=== PATIENT | male | born 1935 | race Caucasian/White ===

== ENCOUNTER 2016-10-19 12:50 | Emergency (ER) | payer OTHER ==
[~2016-10-19] VITALS: Ht 160 cm; Wt 67.0 kg
[~2016-10-19 12:50] MED LIST: APIX5TAB PO; ASPI81TA3 PO; ATOR10TA65 PO; BENA20TA48 PO; METO-448 PO; RANO500T2 PO; TAMS-14 PO; TAMS0.4C2 PO
[2016-10-19 12:57] VITALS: Ht 160 cm; Wt 67.0 kg
[2016-10-19 13:38] LABS: ADD SCAN DIFF NO
[2016-10-19 13:43] LABS: BASOPHIL # 0.1 10^3/ul (0.0-0.1); BASOPHILS % 0.6 % (0.0-2.0); EOSINOPHILS # 0.2 10^3/ul (0.0-0.5); EOSINOPHILS % 2.4 % (0.0-7.0); HEMATOCRIT 50.2 % (42.0-52.0); HEMOGLOBIN 16.6 g/dl (14.0-18.0); LYMPHOCYTES % 23.9 % (15.0-51.0); MEAN CORPUSCULAR HEMOGLOBIN 31.6 pg (29.0-33.0); MEAN CORPUSCULAR HGB CONC 33.1 g/dl (32.0-37.0); MEAN CORPUSCULAR VOLUME 95.4 fl (82.0-101.0); MEAN PLATELET VOLUME 11.8 fl (7.4-10.4); MONOCYTE # 0.8 10^3/ul (0.3-0.9); MONOCYTES % 10.1 % (0.0-11.0); NEUTROPHIL # 5.1 10^3/ul (1.6-7.5); NEUTROPHILS % 62.8 % (39.0-77.0); PLATELET COUNT 154 10^3/UL (140-415); RED BLOOD COUNT 5.26 10^6/ul (4.70-6.10); RED CELL DISTRIBUTION WIDTH 13.6 % (11.5-14.5); WHITE BLOOD COUNT 8.2 10^3/ul (4.8-10.8)
[2016-10-19 13:48] LABS: ADD UMIC NO; URINE BILIRUBIN (Dip) NEGATIVE (NEGATIVE); URINE BLOOD (Dip) NEGATIVE (NEGATIVE); URINE COLOR LT. YELLOW (YELLOW); URINE GLUCOSE (Dip) NEGATIVE (NEGATIVE); URINE KETONES (Dip) NEGATIVE (NEGATIVE); URINE LEUKOCYTE ESTERASE (Dip) NEGATIVE (NEGATIVE); URINE NITRITE (Dip) NEGATIVE (NEGATIVE); URINE TOTAL PROTEIN (Dip) NEGATIVE (NEGATIVE); URINE UROBILINOGEN (Dip) 0.2 E.U./dL (0.1-1.0)
--- NOTE | 2016-10-19 13:48 | RADRPT ---
PROCEDURE: CT Brain without contrast. CLINICAL INDICATION: Possible Stroke TECHNIQUE: A multiplanar CT of the brain was performed on a CT scanner utilizing axial imaging fro m the skull base through the vertex without IV contrast. The CTDIvol is 39.54 mGy and the DLP is 63 4.23 mGycm. One or more of the following dose reduction techniques were utilized: Automated exposu re control, adjustment of the mA and/or kV according to patient size, use of iterative reconstructio n technique. COMPARISON: None FINDINGS: No evidence of intracranial hemorrhage or abnormal extra-axial fluid collection. Patchy periventricular low attenuation compatible with sequelae of chronic microvascular ischemic in jury. The ventricles and subarachnoid spaces are moderate of the large compatible with central pare nchymal volume loss. Physiologic basal ganglia calcifications bilaterally. The basal cisterns, posterior fossa contents, brainstem, craniocervical junction, orbits, pituitary axis, paranasal sinuses, mastoid air cells, and calvarium are unremarkable. IMPRESSION: 1. No intracranial hemorrhage or acute intracranial abnormality. 2. 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 RPTAT:AAJJ Physician Mansi Date Time Electronically viewed and signed by Physician Mansi on 10/19/2016 13:47 BROWN/
[2016-10-19 13:55] LABS: INR 1.16; PROTIME 14.9 Sec (12.2-14.2); PT RATIO 1.2
[2016-10-19 13:56] LABS: PARTIAL THROMBOPLASTIN TIME 29.8 Sec (25.0-35.0)
[2016-10-19 13:58] LABS: CHLORIDE 99 mmol/L (97-110)
[2016-10-19 13:59] LABS: POTASSIUM 4.2 mmol/L (3.5-5.1); SODIUM 140 mmol/L (135-144)
--- NOTE | 2016-10-19 13:59 | RADRPT ---
PROCEDURE: XR Chest. CLINICAL INDICATION: Possible stroke in an 80-year-old. TECHNIQUE: Single frontal view of the chest was obtained COMPARISON: Chest x-ray 04/24/2016 12:21 p.m. FINDINGS: The soft tissues are normal. There are degenerative osteophytes in the thoracic spine. The heart i s enlarged. The cardiomediastinal silhouette, pulmonary vasculature and hilar structures are normal . There are vascular calcifications in the aortic arch and ectasia of the descending thoracic aorta. Lungs are clear. The costophrenic angles are normal. IMPRESSION: 1. Atherosclerosis with ectasia of the thoracic aorta. 2. Cardiomegaly. 3. Spondylosis of the thoracic spine. 4. Stable chest x-ray with no evidence of active cardiopulmonary disease. RPTAT:AAJJ Physician Sangeetha Date Time Electronically viewed and signed by Liam Barber Physician on 10/19/2016 13:59 DERIK/
[2016-10-19 14:01] LABS: ANION GAP 15 (8-16); CARBON DIOXIDE 30 mmol/L (21-31); CREATININE 1.22 mg/dl (0.61-1.24)
[2016-10-19 14:02] LABS: BLOOD UREA NITROGEN 22 mg/dl (7-20); GLUCOSE 99 mg/dl (70-220)
[2016-10-19 14:14] LABS: BARBITURATES Negative (NEGATIVE); BENZODIAZEPINES Negative (NEGATIVE); CANNABINOIDS Negative (NEGATIVE); COCAINE Negative (NEGATIVE); OPIATES Negative (NEGATIVE)
[2016-10-19 14:17] LABS: TROPONIN-I < 0.012 ng/ml (0.00-0.12)
[2016-10-19 14:44] VITALS: BP 137/59; PULSE 88; RESP 16
--- NOTE | 2016-10-19 14:48 | ERD ---
ER Documentation Chief Complaint Date/Time DATE: 10/19/16 TIME: 14:48 Chief Complaint weakness and dizziness started today HPI Patient is a 80-year-old male with no medical problems who presents with dizziness. The patient was brought in by ambulance. He felt dizzy and lightheaded. He said that it just started today while he was at his doctor's office. The doctor's office called 911 to send him to the emergency department for evaluation. He has had this in the past. He is on Eliquis at this time. His primary doctor is Dr. Foley. ROS All systems reviewed and are negative except as per history of present illness. Medications Home Meds Active Scripts Benazepril Hcl* (Benazepril Hcl*) 20 Mg Tablet, 10 MG PO DAILY, #30 TAB Prov:TARIK ALSTON MD 04/27/16 Aspirin (Aspirin) 81 Mg Chew, 81 MG PO DAILY, #30 TAB Prov:TARIK ALSTON MD 04/27/16 Metoprolol Tartrate* (Lopressor*) 25 Mg Tab, 12.5 MG PO BID, #60 TAB Prov:TARIK ALSTON MD 04/27/16 Ranolazine* (Ranexa*) 500 Mg Tab.sr.12h, 500 MG PO Q12, #60 TAB Prov:TARIK ALSTON MD 04/27/16 Atorvastatin (Atorvastatin) 10 Mg Tablet, 40 MG PO QHS, #30 TAB Prov:TARIK ALSTON MD 04/27/16 Apixaban* (Eliquis*) 5 Mg Tablet, 5 MG PO BID, #60 TAB Prov:TARIK ALSTON MD 04/27/16 Reported Medications Tamsulosin Hcl* (Tamsulosin Hcl*) 0.4 Mg Cap.er.24h, 0.4 MG PO HS, CAP 04/25/16 Discontinued Scripts Tamsulosin Hcl* (Flomax*) 0.4 Mg Cap.er.24h, 0.4 MG PO HS, #30 CAP Prov:TARIK ALSTON MD 04/27/16 Allergies Allergies: Coded Allergies: Penicillins (Verified Allergy, Intermediate, RASHES, 10/19/16) PMhx/Soc History of Surgery: No Anesthesia Reaction: No Hx Neurological Disorder: No Hx Respiratory Disorders: No Hx Cardiac Disorders: Yes (Afib, high cholesterol, htn, heart cath) Hx Psychiatric Problems: No Hx Miscellaneous Medical Probl: No Hx Alcohol Use: No Hx Substance Use: No Hx Tobacco Use: Yes (Quit 4-5 years ago) Smoking Status: Current every day smoker FmHx Family History: No diabetes Physical Exam Vitals Vital Signs Date Time Temp Pulse Resp B/P Pulse Ox O2 Delivery O2 Flow Rate FiO2 10/19/16 14:44 88 16 137/59 100 Room Air 10/19/16 12:57 97.8 78 18 150/72 99 Physical Exam Const: No acute distress Head: Atraumatic Eyes: Normal Conjunctiva ENT: Normal External Ears, Nose and Mouth. Neck: Full range of motion..~ No meningismus. Resp: Clear to auscultation bilaterally Cardio: Irregular rhythm with normal rate Abd: Soft, non tender, non distended. Normal bowel sounds Skin: No petechiae or rashes Back: No midline or flank tenderness Ext: No cyanosis, or edema Neur: Awake and alert, cranial nerves II through XII intact, strength is 5 out of 5 in all 4 extremities, the patient is able to hold both legs up at the same time, there is no slurred speech, no pronator drift Psych: Normal Mood and Affect Result Diagram: 10/19/16 1330 10/19/16 1330 Results 24 hrs Laboratory Tests Test 10/19/16 13:20 10/19/16 13:30 Urine Amphetamines Screen Negative Urine Barbiturates Negative Urine Benzodiazepines Screen Negative Urine Bilirubin NEGATIVE Urine Cannabinoids Negative Urine Clarity CLEAR Urine Cocaine Screen Negative Urine Color LT. YELLOW Urine Glucose NEGATIVE% Urine Hemoglobin NEGATIVE Urine Ketones NEGATIVE Urine Leukocyte Esterase NEGATIVE Urine Nitrite NEGATIVE Urine Opiates Screen Negative Urine Specific Antelope <=1.005 Urine Total Protein NEGATIVE Urine Urobilinogen 0.2 E.U./dL Urine pH 6.0 Activated Partial Thromboplast Time 29.8Sec Anion Gap 15 Basophils # 0.110^3/ul Basophils % 0.6% Blood Urea Nitrogen 22mg/dl Calcium Level 9.0mg/dl Carbon Dioxide Level 30mmol/L Chloride Level 99mmol/L Creatinine 1.22mg/dl Eosinophils # 0.210^3/ul Eosinophils % 2.4% Glucose Level 99mg/dl Hematocrit 50.2% Hemoglobin 16.6g/dl Hemoglobin A1c 6.4% INR International Normalized Ratio 1.16 Lymphocytes # 2.010^3/ul Lymphocytes % 23.9% Mean Corpuscular Hemoglobin 31.6pg Mean Corpuscular Hemoglobin Concent 33.1g/dl Mean Corpuscular Volume 95.4fl Mean Platelet Volume 11.8fl Monocytes # 0.810^3/ul Monocytes % 10.1% Neutrophils # 5.110^3/ul Neutrophils % 62.8% Nucleated Red Blood Cells # 0.010^3/ul Nucleated Red Blood Cells % 0.0/100WBC Platelet Count 29864^3/UL Potassium Level 4.2mmol/L Prothrombin Time 14.9Sec Prothrombin Time Ratio 1.2 Red Blood Count 5.2610^6/ul Red Cell Distribution Width 13.6% Sodium Level 140mmol/L Troponin I < 0.012ng/ml White Blood Count 8.210^3/ul Procedures/MDM EKG read by me: Rate/Rhythm: Atrial fibrillation a rate of 65 Intervals: Normal Impression: Atrial fibrillation with flipped T waves in the inferior leads Chest x-ray shows no acute process per radiology. CT scan of the brain shows no acute process per radiology. Patient is 80-year-old male with no medical problems who presents with dizziness. The patient is well-appearing in the emergency department without any signs of stroke. CT scan was negative for acute process. He has atrial fibrillation with a controlled rate and is already on blood thinners. I do not believe he requires further workup or admission the hospital at this time. He should have close follow-up with his primary doctor within 24-48 hours. I did give him copies of his laboratory studies and CT scan report prior to discharge. I doubt acute coronary syndrome or electrolyte abnormality. Departure Diagnosis: Primary Impression: Dizziness Additional Impression: Acute weakness Condition: Fair Patient Instructions: Dizziness, Unk Cause, Weakness, Unk Cause Referrals: Your doctor Additional Instructions: Llame al doctor MAANA y garry christine OREN PARA DENTRO DE [address].Dgale a la secretaria que nosotros le instruimos hacer esta oren.Avise o llame si morales condicin se empeora antes de la oren. Regresa aqui si peor o no mejor. ARIANNA GARLAND MD Oct 19, 2016 14:48
== END 2016-10-19 14:59 | disposition home or self-care (01) ==
LOC: E/R 12:50
DX: R42 Dizziness and giddiness (principal); R53.1 Weakness; F17.210 Nicotine dependence, cigarettes, uncomplicated; I10 Essential (primary) hypertension; Z79.82 Long term (current) use of aspirin; Z79.01 Long term (current) use of anticoagulants
CPT/HCPCS: 36415; 70450; 71010; 80048; 80307; 81003; 83036; 84484; 85025; 85610; 85730; 93005

== ENCOUNTER 2018-10-17 14:10 | Emergency (ER) | payer SELFPAY ==
[~2018-10-17] VITALS: Ht 167.6 cm; Wt 75.6 kg
[~2018-10-17 14:10] MED LIST changes: +ASPI-831 PO; -ASPI81TA3 PO; +BENA20TA4 PO; -BENA20TA48 PO; -TAMS-14 PO
[2018-10-17 14:17] VITALS: BP 201/96; PULSE 80; RESP 18; Ht 167.6 cm; Wt 75.6 kg
== END 2018-10-17 21:04 | disposition left against medical advice (07) ==
LOC: E/R 14:10
DX: Z53.21 Procedure and treatment not carried out due to patient leaving prior to being seen by health care provider (principal)